=== PATIENT | male | born 1985 | race Two or more races ===

== ENCOUNTER 2016-12-25 09:24 | Outpatient (CLI) | payer OTHER ==
--- NOTE | 2016-12-25 19:30 | MRI Report ---
EXAM: LEFT KNEE MRI WITHOUT CONTRAST EXAM DATE: 12/25/2016 10:26 a.m. CLINICAL HISTORY: Left knee pain. Injured knee while playing basketball 2 weeks ago. COMPARISON: None. TECHNIQUE: Multiplanar, multisequence T1-weighted and fluid-sensitive sequences of the knee without c ontrast. Other: None. FINDINGS: Bones and articular cartilage: Minimally depressed impaction-type fracture at the anterolateral aspec t of the lateral femoral condyle. Bone contusions at the posterior aspects of the medial and lateral tibial plateaus. Articular cartilage is within normal limits. Medial Meniscus: The medial meniscus is intact. Lateral Meniscus: The lateral meniscus is intact. Cruciate Ligaments: There is a high-grade partial tear or full-thickness tear involving the proximal to mid aspect of the anterior cruciate ligament. The posterior cruciate ligament is unremarkable. Collateral Ligaments: Grade 1 sprain at the posterior aspect of the medial collateral ligament comple x. The lateral collateral ligament complex structures are intact. Tendons: The quadriceps, patellar, semimembranosus, and popliteus tendons are unremarkable. Musculature: No edema or fatty atrophy. Other: No effusion. No popliteal cyst. No loose bodies. The medial and lateral retinacula are intact . The subcutaneous tissues and fat pads are unremarkable. IMPRESSION: 1. High-grade partial tear or full-thickness tear involving the proximal to mid aspect of the anterio r cruciate ligament. 2. Grade 1 sprain at the posterior aspect of the medial collateral ligament complex. 3. No meniscal tear. 4. Minimally depressed impaction-type fracture at the anterolateral aspect of the lateral femoral con dyle. Bone contusions at the posterior aspects of the medial and lateral tibial plateaus. [facility] MUSCULOSKELETAL RADIOLOGY SECTION Referring Provider Line: [phone] SITE ID: [id number]
== END 2016-12-25 09:25 | disposition home or self-care (01) ==
LOC: DI 09:24
PROVIDERS: ATTEND Physician Assistant
DX: S72.422A Displaced fracture of lateral condyle of left femur, initial encounter for closed fracture (principal); S83.512A Sprain of anterior cruciate ligament of left knee, initial encounter; S83.412A Sprain of medial collateral ligament of left knee, initial encounter

== ENCOUNTER 2017-02-23 06:07 | Day surgery (SDC) | payer OTHER ==
[2017-02-23] MEDS ORDERED: ACETAMINOPHEN 1,000 MG/100 ML 100 ML IV ONE (06:36)
[2017-02-23] MEDS ORDERED: CELECOXIB 100 MG CAPSULE PO ONE (06:36)
[2017-02-23] MEDS ORDERED: ceFAZolin 2 GM/50 ML 50 ML IV ONE (06:36)
[2017-02-23] MEDS ORDERED: LACTATED RINGERS 1,000 ML IV ONE ×2 (06:38→11:09)
[2017-02-23] MEDS ORDERED: PROPOFOL 200 MG/20 ML VIAL IVP ONE (08:00)
[2017-02-23] MEDS ORDERED: DEXAMETHASONE 4 MG/ML VIAL IVP ONE (08:00)
[2017-02-23] MEDS ORDERED: fentaNYL 100 MCG/2 ML VIAL IVP ONE (08:00)
[2017-02-23] MEDS ORDERED: LIDOCAINE-MPF 2% 5 ML VIAL IM ONE (08:00)
[2017-02-23] MEDS ORDERED: MIDAZOLAM 2 MG/2 ML VIAL IVP ONE (08:00)
[2017-02-23] MEDS ORDERED: ONDANSETRON 4 MG/2 ML VIAL IVP ONE (08:00)
[2017-02-23] MEDS ORDERED: ROPIVACAINE 0.5% PF 20 ML AMPULE EP ONE (08:00)
--- NOTE | 2017-02-23 10:31 | XRAY Report ---
INTRAOPERATIVE TWO-VIEW LEFT KNEE: 02/23/2017 CLINICAL INDICATION: ACL repair. FINDINGS: Two intraoperative matrix images demonstrate a retention button along the left lateral fem oral condyle. Three seconds of fluoroscopy time was provided to Dr. Mcnally. Two spot images obtained. IMPRESSION: INTRAOPERATIVE IMAGING OF LEFT KNEE ACL REPLACEMENT. JOB #: [id number] EXT JOB #:[id number]
[2017-02-23] MEDS ORDERED: ROPIVACAINE 0.2% PF 20 ML AMPULE SUBQ ONE (10:46)
[2017-02-23] MEDS ORDERED: MORPHINE PF 10 MG/10 ML AMP SUBQ ONE (10:46)
--- NOTE | 2017-02-23 12:13 | XRAY Report ---
TWO VIEW LEFT KNEE: 02/23/2017 CLINICAL INDICATION: Postop ACL reconstruction. FINDINGS: Frontal and lateral views of the left knee demonstrate a retention button along the latera l femoral condyle. Postoperative changes are present. A knee brace obscures detail, especially on the lateral. IMPRESSION: EXPECTED POSTOPERATIVE APPEARANCE OF LEFT ACL REPLACEMENT. JOB #: [id number] EXT JOB #:[id number]
[2017-02-23] MEDS ORDERED: oxyCODONE 5 MG TABLET ONE ×2 (12:17→12:25)
[2017-02-23 12:50] VITALS: BP 118/78
--- NOTE | 2017-02-23 14:32 | OPERATIVE REPORT ---
DATE OF SURGERY: 02/23/2017 00:00:00 [facility] MEDICAL RECORD: [id number] PREOPERATIVE DIAGNOSIS: Left anterior cruciate ligament tear. POSTOPERATIVE DIAGNOSES 1. Left anterior cruciate ligament tear. 2. Medial plica. NAME OF PROCEDURE 1. Arthroscopic assisted left anterior cruciate ligament reconstruction with hybrid hamstring autograft and tibialis anterior allograft graft. 2. Medial plica excision. SURGEON: Amanda Mcnally MD BASKET MAKER SURGEON: Lasha Sahni MD ANESTHESIOLOGIST: Renetta Romano CRNA CIRCULATING NURSE: Nitish Grover RN [employer]OR TENDER 1. Drea Wood RN, BSN 2. Bhavesh Mccray CST ANESTHESIA: General via LMA. IV FLUIDS: 1000 mL lactated Ringer's. ESTIMATED BLOOD LOSS: 15 mL. TOURNIQUET: To left thigh at 250 mmHg for 8 minutes. ANTIBIOTICS: Ancef 2 g IV. SPECIMENS: None. IMPLANTS 1. Arthex TightRope RT. 2. Arthrex GraftBolt, 9 mm. 3. Tibialis anterior allograft. COMPLICATIONS: None. INDICATIONS FOR SURGERY: This is a 31-year-old male who was playing basketball in November 2016 when he felt a pop in his left knee and was unable to continue playing and had immediate onset of swelling and pain. An MRI was obtained that showed a high grade anterior cruciate ligament tear. He continued to have pain and instability in his left knee. The risks, benefits, indications, expectations and treatment options were discussed with the patient. Risks of surgery to include, but not limited to, infection, transmission of diseases from allograft, bleeding, damage to neurovascular structures, need for additional surgery, persistent or worsened pain, recurrent meniscus or ligament tears, posttraumatic arthritis, decreased range of motion or stiffness, iatrogenic chondromalacia, iatrogenic fracture, deep vein thrombosis, pulmonary embolism, loss of limb, and loss of life were discussed with the patient. All questions were answered. The patient elected to proceed with surgery, and informed consent was obtained. PROCEDURE: The patient was met in the preoperative holding area on the morning of surgery, where we confirmed that we had the correct the patient, planned to do the correct procedure and had the correct extremity, which was the left lower extremity identified. Prior to the patient receiving any medications, the operative extremity was initialed by the surgeon. The patient then, under light sedation, had an adductor canal nerve block performed by Anesthesia. The patient was then brought back to the operating room in stable condition and placed supine on the operating room table. All bony prominences were well-padded , and sequential compression devices were placed on the nonoperative leg. General anesthesia was then induced without complication, and LMA was placed. The left lower extremity was examined under anesthesia and was notable for a 2B Cynthia's. The pivot shift was negative, however. The knee was stable to varus and valgus at 0 and 30 degrees. There was a negative dial. The left lower extremity was then prepped and draped in usual sterile fashion. After final draping, additional ChloraPrep was utilized on the operative site. Three minutes were allowed to elapse to enable the ChloraPrep to dry. We held a surgical timeout, where we confirmed that we had the correct the patient, planned to do the correct procedure and had the correct extremity, which was the left lower extremity identified. We also confirmed that all necessary gear was in the room and confirmed sterile, that no members of the operative team had any concerns and that the patient had received preoperative antibiotics. We then began by making a standard anterolateral portal by first sharply incising the skin with an 11 blade and then introducing the trocar with a blunt introducer into the patellofemoral joint. Immediately upon entering the knee, there was a significant amount of the anterior fat pad encountered. Additionally , a large medial plica was noted. We examined the patellofemoral joint, which was without significant lesions. We then came into the medial compartment and under direct visualization established an anteromedial portal by first localizing with an 18 gauge needle and then sharply incising the skin with an 11 blade and introducing the blunt introducer to further establish the portal. We then introduced a sucker shaver and began debriding the anterior fat pad, as well as the medial plica. Once these were adequately debrided, we continued our arthroscopic exam in the medial compartment. The medial meniscus was intact. There was minor fissuring of the medial femoral condyle. Medial tibial plateau was without significant lesion. We then continued our exam into the notch. There was some synovitic tissue noted around the posterior cruciate ligament, but it was grossly intact. The anterior bundle of the anterior cruciate ligament was near completely torn. There were some fibers of the posteromedial bundle that remaining intact; however, given the patient's persistent symptoms of instability, the decision was made to proceed with reconstruction. We then continued into the lateral compartment, where the lateral meniscus was noted to be intact. There were no significant lesions of the lateral tibial plateau or the lateral femoral condyle. We then removed all arthroscopic equipment and turned our attention to harvesting the hamstring tendons. An incision was made below the joint line and just medial to the tibial tubercle directly over the hamstring tendons. After sharply incising the skin, we utilized electrocautery to dissect down to the sartorius fascia. We then identified the sartorius fascia and identified the superior border of the gracilis tendon. We then made an incision perpendicular to the superior border of the gracilis through the sartorius fascia, however, taking care not to incise through the medial collateral ligament. We then on the long edge of the hockey stick incision sharply incised down to bone in line with the tibia on the lateral aspect of the incision. After sharply incising down to the bone, we then elevated the tissue, so that we could identify the gracilis and semitendinosus tendons. We then these from the sartorial fascia and marked the sartorial fascia with a #2 Ethibond. We then the gracilis and semitendinosus from each other and whipstitched the ends of each of these tendons utilizing a #2 FiberWire. We then removed any adhesions or bands of tissue attached to the tendons. We then placed a tendon stripper over the gracilis and harvested the gracilis tendon, which was noted to be harvested in full. We then repeated the same with the semitendinosus, which again was noted to be harvested in full. We then debrided these tendons of any residual muscle on the back table. We then whipstitched the free ends of these utilizing a #2 FiberLoop. We then doubled the gracilis and semitendinosus tendons over an umbilical tape and measured utilizing the Arthrex sizer. The tendons were determined to be 7 mm in diameter. Given that this was below 8 mm, decision was made to augment this with allograft tissue. A nonirradiated tibialis anterior allograft was thawed in bacitracin solution, while the autograft tissue was also soaked in the bacitracin solution. After the allograft had sufficiently thawed, a strip of this was cut, and then, both ends of that were whipstitched utilizing a FiberLoop. We then took the allograft as well as the autograft and doubled this over an umbilical tape and measured this to be a 9 mm graft. We then placed the graft on tension utilizing the Graft Master set at 20 pounds of pressure. We wrapped the tendons with bacitracin solution soaked Ray-Krista while they were under tension. We then turned our attention back to the preparation of the knee for the anterior cruciate ligament reconstruction. We debrided the notch of any remnant ACL tissue. We identified the posterior wall of the lateral femoral condyle, as well as the articular surface, and marked a spot that was just anterior to the posterior wall and superior to the cartilage surface. We then viewed this from the anteromedial portal, which showed appropriate planned placement of the femoral tunnel. We then placed the Arthrex left femoral tunnel guide into the anterolateral portal and placed the guide such that it was over the previously marked spot ensuring that there would be adequate posterior wall and that the cartilage surface would not be breached. We set the guide to 100 degrees. We then marked on the outside of the distal lateral thigh where the bullet came down to the skin and then sharply incised the skin, as well as the IT band, down to the bone. We then placed the bullet of the guide all the way down to the bone and then utilized a 9 mm FlipCutter and drilled from the lateral cortex of the femur down into the knee. We then removed the drill guide and flipped the FlipCutter and jagdish back etching the lateral femoral condyle. We then reviewed this and confirmed appropriate placement of the tunnel. We then drilled back 20 mm utilizing the FlipCutter and then straightened the FlipCutter back out and withdrew this from the knee. We then passed a FiberStick loaded with #2 FiberWire through the bullet aspect of the guide on the lateral femur into the knee and then grasped this through the anterolateral portal. We then clamped the 2 ends of the FiberWire. We then turned our attention to the tibial tunnel. While viewing from the anterolateral tunnel, we placed the Arthrex tibial guide set at 55 degrees into the anteromedial portal. We placed the guide such that it was in the footprint of the anterior cruciate ligament on the tibia just anterior to the posterior cruciate ligament. We ensured that the guide was parallel to the floor and placed the bullet down to the bone on the tibia utilizing the previously made tibial incision. This measured approximately 52 mm. We placed a guide pin through the outer cortex of the tibia and into the joint utilizing the guide. We then removed the guide and confirmed that the pin was appropriately placed. We then utilized a 9 mm drill and drilled over this to create the tibial tunnel. We then took the suture the #2 FiberWire that was coming out of the anterolateral portal and brought this out through the tibial tunnel such that the FiberWire was passing through both the tibial tunnel and the femoral tunnel. We then turned our attention back to the graft. We looped the graft over an Arthrex TightRope RT. We then placed the free ends of the suture from the RT into the looped end of the FiberWire that was coming out the tibial tunnel and pulled the TightRope with the graft through the tibial tunnel and pulled the sutures out of the femoral tunnel. We then placed the camera back inside the knee and with the knee in flexion brought the TightRope out of the femoral tunnel until a previously marked you on the TightRope indicating 40 mm passed into the femoral tunnel. We then flipped the cortical button and pulled back on the graft, confirming that the button had flipped and was against the femur. We then obtained fluoroscopy, which again showed that the cortical button was flipped and on the outside of the femur and lying flat. We then, while visualizing with the arthroscope in the knee, cinched up the graft up into the femoral tunnel until no more graft would pass and the previously marked 20 mm you on the graft had passed. We then brought the knee into extension on the table and placed a nitinol wire into the tibial tunnel while maintaining downward pressure on the graft. We then dilated over this nitinol wire starting with an 8 mm dilator and up to a 9 mm, which had tight fit. Therefore, decision was made to place a 9 mm GraftBolt. After dilating the tibial tunnel, we then placed the GraftBolt sheath into the tibial tunnel, malleting it into place. We then placed the GraftBolt screw into the sheath. We then confirmed that we had tight fixation. We performed an intraoperative Cynthia's which was 1A. We then placed the arthroscope back into the knee and examined the ACL, which was appropriately taut. We brought the knee into extension, and there was no impingement on the roof of the notch. We then brought the knee back onto the table and cut any remaining tendon that was sticking out of the tibia. We then thoroughly irrigated all wounds. We then closed the sartorial fascia utilizing 0 Vicryl. We then thoroughly irrigated the tibial incision again. We then closed the subcuticular layer with 2-0 Vicryl and the skin with running buried 3-0 Monocryl. The 2 portal incisions were closed with buried 3-0 Monocryl as well was the lateral distal thigh incision. The knee was then injected with 10 mg of Duramorph and 10 mg of Naropin. The wounds were then dressed with sterile Xeroform, plain gauze, and an abdominal pad. A CHRISTIAN hose was then placed over this. All sponge counts and needle counts were correct at the conclusion of the case. The patient was awakened from general anesthesia without complication and taken to the PACU in stable condition. POSTOPERATIVE PLAN: The patient will be weightbearing as tolerated on his left lower extremity. He may range his knee as tolerated. He may take his dressings down in 5 days and shower at that time. He is not to soak his wounds for 4 weeks. I will see the patient back in 10-14 days for a wound check and initiate physical therapy. Report edited and signed 02/25/2017 by Amanda Mcnally MD. JOB #: [id number] EXT JOB #:[id number] MTDD
--- NOTE | 2017-03-02 09:19 | XRAY Report ---
Fluoroscopy time only, no images submitted for interpretation. Fluoroscopy time 0 minutes, 3 seconds. MTDD
== END 2017-02-23 06:08 | disposition home or self-care (01) ==
LOC: SDS 06:07
PROVIDERS: ATTEND Orthopaedic Surgery
PROC: 0SBD4ZZ Excision of Left Knee Joint, Percutaneous Endoscopic Approach (ICD-10-PCS; 2017-02-23)
PROC: 0MUP47Z Supplement Left Knee Bursa and Ligament with Autologous Tissue Substitute, Percutaneous Endoscopic Approach (ICD-10-PCS; principal; 2017-02-23 07:30)
DX: S83.512A Sprain of anterior cruciate ligament of left knee, initial encounter (principal); Y93.67 Activity, basketball
CPT/HCPCS: 29875; 29888; 73560; A9270; C1713; C1762; J0131; J0690; J2274; J7120

== ENCOUNTER 2018-03-09 12:11 | Outpatient (CLI) | payer OTHER ==
[2018-03-09] MEDS ORDERED: IOTHALAMATE MEGLUMINE 50 ML VIAL ONE ×2 (12:28→13:49)
[2018-03-09] MEDS ORDERED: GADOPENTETATE DIMEGLUMINE 5 ML VIAL IVP ONE ×4 (12:28→16:00)
[2018-03-09] MEDS ORDERED: BUFFERED LIDOCAINE 10 ML SYRINGE IU ONE ×2 (13:39→16:00)
[2018-03-09] MEDS ORDERED: IOTHALAMATE MEGLUMINE 50 ML VIAL IVP ONE ×2 (13:39→16:00)
--- NOTE | 2018-03-09 17:16 | XRAY Report ---
Reason: PAIN IN LEFT KNEE Procedure Date: 03/09/2018 Accession Number: [id number] / [id number] Procedure: FL - Arthrogram Needle Placement CPT Code: FULL RESULT: EXAM: LEFT KNEE ARTHROGRAPHIC INJECTION WITH FLUOROSCOPIC GUIDANCE EXAM DATE: 03/09/2018 01:28 PM. CLINICAL HISTORY: Pain in left knee. COMPARISON: Left knee 02/23/2017 6:45 AM. TECHNIQUE: The risks, benefits, and alternatives of the procedure were discussed with the patient. All questions were answered. Written and verbal consent were obtained. The knee joint was marked under fluoroscopy and prepped and draped in a sterile manner. Local anesthesia was performed with 1% lidocaine. A 22-gauge needle was then inserted into the knee joint. 30 mL of a solution containing 50% iodinated contrast and a 1:200 dilution of gadolinium contrast in sterile saline was then injected. The needle was removed without immediate complication. Other: None. Number of Images: 3. For purposes of interpretation of the MRI, please note that a portion of the gadolinium contrast was injected in the suprapatellar space. FINDINGS: Bones and joints: No fracture or subluxation. Injection: Fluoroscopic images demonstrate needle placement and contrast in the knee joint. IMPRESSION: Fluoroscopically guided arthrographic injection of the knee joint. [facility]
--- NOTE | 2018-03-10 08:41 | MRI Report ---
Reason: PAIN IN LEFT KNEE Procedure Date: 03/09/2018 Accession Number: [id number] / [id number] Procedure: MRI - Arthrogram Knee LT CPT Code: FULL RESULT: EXAM: LEFT KNEE MRI ARTHROGRAM WITH CONTRAST EXAM DATE: 03/09/2018 03:09 PM. CLINICAL HISTORY: Left knee pain. Previous knee surgery. COMPARISON: KNEE LT W/O 12/25/2016 9:45 AM. TECHNIQUE: Multiplanar, multisequence T1-weighted and fluid-sensitive sequences of the knee after an arthrographic injection of dilute gadolinium, dictated under a separate exam. Other: None. FINDINGS: Bones and articular cartilage: Postoperative changes at the distal femur and proximal tibia related to previous ACL reconstruction. Cobb screw at the proximal tibia. No acute fracture or bone lesions. Articular cartilage is within normal limits. Medial Meniscus: The medial meniscus is intact. Lateral Meniscus: The lateral meniscus is intact. Cruciate Ligaments: The ACL graft is intact. The posterior cruciate ligament is intact. Collateral Ligaments: The medial collateral and lateral collateral ligamentous structures are intact. Tendons: The quadriceps, patellar, semimembranosus, and popliteus tendons are unremarkable. Musculature: No edema or fatty atrophy. Other: Small popliteal cyst. No loose bodies. The medial and lateral retinacula are intact. The subcutaneous tissues and fat pads are unremarkable. IMPRESSION: 1. Previous ACL reconstruction. The ACL graft is intact. 2. No meniscal tear. 3. Small popliteal cyst. [facility] MUSCULOSKELETAL RADIOLOGY SECTION
== END 2018-03-09 12:12 | disposition home or self-care (01) ==
LOC: DI 12:11
PROVIDERS: ATTEND Orthopaedic Surgery
DX: M25.562 Pain in left knee (principal); M71.22 Synovial cyst of popliteal space [Baker], left knee
CPT/HCPCS: 27370; 73722; 77002; Q9961